=== PATIENT | female | born 1995 | race Caucasian/White ===

== ENCOUNTER 2017-02-25 17:31 | Emergency (ER) | payer OTHER ==
[2017-02-25 17:46] VITALS: BP 97/77; PULSE 82; RESP 16; TEMP 98.2; O2SAT 96
[2017-02-25] MEDS ORDERED: IBUPROFEN 600 MG TAB PO ONE (18:20)
[2017-02-25] MEDS ORDERED: HYDROCODONE/APAP 5/325 TAB PO ONE (18:20)
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
[2017-02-25] MEDS ORDERED: IBUPROFEN 200 MG TAB PO ONE (18:30)
[2017-02-25] MEDS ORDERED: HYDROCOD/APAP 5/325 PREPACK#6 BTL TAKEHOME ONE (18:31)
[2017-02-25] MEDS ORDERED: HYDROCODONE/APAP 5/325 TAB ONE (18:31)
== END 2017-02-25 18:30 | disposition home or self-care (01) ==
DX: S16.1XXA Strain of muscle, fascia and tendon at neck level, initial encounter (principal); V49.49XA Driver injured in collision with other motor vehicles in traffic accident, initial encounter; Y92.410 Unspecified street and highway as the place of occurrence of the external cause; Y99.8 Other external cause status; Y93.89 Activity, other specified